=== PATIENT | male | born 1990 | race African-American/Black ===

== ENCOUNTER 2018-06-29 16:29 | Emergency (ER) | payer MEDICAID ==
[~2018-06-29] VITALS: Ht 177.8 cm; Wt 71.7 kg
[2018-06-29 16:49] VITALS: BP 134/71
--- NOTE | 2018-06-29 18:11 | NUR ---
PT AMBULATED TO ER BED 05
--- NOTE | 2018-06-29 18:15 | NUR ---
27 YO M BIB SELF PRESENTS TO ED CO BILAT EYE SENSITIVITY, REDNESS, AND IRRITATION X 2 WEEKS THAT HAS WORSENED OVER TIME. DENIES PAIN AND DISCHARGE, BUT STATES EYES ARE WATERY. --PMH: DENIES --RX: DENIES PT POSITIONED FOR COMFORT. HOB ELEVATED. SIDE RAIL UP X 1. VSS. NO APPARENT DISTRESS AT THIS TIME. NEISHA LARSEN AT BEDSIDE.
[2018-06-29] MEDS ORDERED: FLUORESCEIN OPTH STRIP 0.6 MG OP ONE ×2 (18:30)
[2018-06-29] MEDS ORDERED: TETRACAINE HCL/PF 0.5% OPTH 4 ML BTL OP ONE (18:30)
--- NOTE | 2018-06-29 18:50 | NUR ---
NEISHA LARSEN AT BEDSIDE PERFORMING FLOURESCEIN TX. PT TOLERATED WELL.
[2018-06-29 19:47] VITALS: BP 122/88
--- NOTE | 2018-06-29 19:47 | NUR ---
DISCHARGE INSTRUCTIONS PROVIDED. 0/10 PAIN. VISION INTACT. VSS. PT VERBALLIZED UNDERSTANDING OF DC INSTRUCTIONS. ALL QUESTIONS ANSWERED. PROVIDED WITH DISCOUNT MEDICATION CARD.
== END 2018-06-29 19:47 | disposition home or self-care (01) ==
LOC: MED 16:29
DX: H10.9 Unspecified conjunctivitis (principal); R03.0 Elevated blood-pressure reading, without diagnosis of hypertension
CPT/HCPCS: 99283; 99284